=== PATIENT | female | born 1970 | race Caucasian/White ===

== ENCOUNTER 2017-08-28 14:00 | Emergency (ER) | payer BC ==
[~2017-08-28] VITALS: Ht 170.2 cm; Wt 72.6 kg
[2017-08-28] MEDS ORDERED: LORazepam 1mg tab ORAL ONE (14:45)
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
[2017-08-28] MEDS ORDERED: Bacitracin Oint UD TOPIC ONE ×2 (15:45→16:00)
[2017-08-28] MEDS ORDERED: ROBAXIN500 MG PO (15:46)
[2017-08-28] MEDS ORDERED: IBUPROFEN600 MG ORAL (15:46)
[2017-08-28] MEDS ORDERED: LIDODERM700 M1 TOPIC (15:51)
[2017-08-28 16:13] VITALS: BP 100/67
== END 2017-08-28 16:13 | disposition home or self-care (01) ==
LOC: EDBD 14:00 → EMR 14:35
DX: S16.1XXA Strain of muscle, fascia and tendon at neck level, initial encounter (principal); S39.012A Strain of muscle, fascia and tendon of lower back, initial encounter; S00.81XA Abrasion of other part of head, initial encounter; V43.52XA Car driver injured in collision with other type car in traffic accident, initial encounter; Y93.9 Activity, unspecified; Y92.410 Unspecified street and highway as the place of occurrence of the external cause
CPT/HCPCS: 99284